=== PATIENT | female | born 1995 | race Caucasian/White ===

== ENCOUNTER → 2022-02-21 | Outpatient (REF) | payer OTHER | LOC: M LAB REF 16:36 | PROVIDERS: ATTEND Physician Assistant | DX: J03.90 Acute tonsillitis, unspecified (principal) ==

== ENCOUNTER → 2022-12-20 | Outpatient (CLI) | payer OTHER ==
[~2022-12-20] MED LIST: AMIT100TA PO; CLAR40CA PO; E-Z-GAS II EFFERVESCENT PACKET (SODIUM BICARB./CITRIC ACID/SIMETHICONE) As Ordered ONE; E-Z-HD 98% w/w 340GM SUSP BTL As Ordered ONE; E-Z-PAQUE 96% w/w SUSP 176GM BTL As Ordered ONE; HYDR-3363 PO; LUBI24CA PO; NITR-67 PO; ONDA-195 PO; PRUC2TAB PO; RIME75TA PO; TROK1CAP PO
== END ==
LOC: M RAD 08:13 → MERGE 08:30
PROVIDERS: ATTEND Registered Nurse
DX: K59.00 Constipation, unspecified (principal); K44.9 Diaphragmatic hernia without obstruction or gangrene

== ENCOUNTER → 2023-11-09 | Outpatient (REF) | payer OTHER ==
[~2023-11-09] MED LIST changes: -E-Z-GAS II EFFERVESCENT PACKET (SODIUM BICARB./CITRIC ACID/SIMETHICONE) As Ordered ONE; -E-Z-HD 98% w/w 340GM SUSP BTL As Ordered ONE; -E-Z-PAQUE 96% w/w SUSP 176GM BTL As Ordered ONE; -TROK1CAP PO; +[UNRECOGNIZED DRUG - CODE] PO
[2023-11-09 19:49] LABS: AMORPHOUS SEDIMENT SMALL (NEGATIVE); APPEARANCE, URINE CLOUDY (CLEAR); BACTERIA, URINE AUTO NEGATIVE (NEGATIVE); BILIRUBIN, URINE AUTO NEGATIVE (NEGATIVE); BLOOD, URINE BLOOD NEGATIVE (NEGATIVE); COLOR, URINE YELLOW (YELLOW); GLUCOSE, URINE (UA) AUTO NEGATIVE (NEGATIVE); KETONE, URINE AUTO NEGATIVE (NEGATIVE); LEUKOCYTE ESTERASE, URINE AUTO NEGATIVE (NEGATIVE); NITRITE, URINE AUTO NEGATIVE (NEGATIVE); PROTEIN, URINE AUTO NEGATIVE (NEGATIVE); RBC, URINE AUTO 0 /HPF (0-3); SPECIFIC GRAVITY URINE AUTO 1.011 (1.002-1.035); SQUAMOUS EPITHELIAL CELL UR AU 1 /HPF (0-6); UROBILINOGEN, URINE AUTO 0.2 mg/dL (0.0-2.0); WBC, URINE AUTO 0 /HPF (0-3)
[2023-11-09 20:42] LABS: Trichomonas vaginalis (AMP) NOT DETECTED (NEGATIVE)
[2023-11-09 21:06] LABS: GC DNA AMPLIFICATION NEGATIVE (NEGATIVE)
== END ==
LOC: M LAB REF 19:17
PROVIDERS: ATTEND Physician Assistant
DX: N39.0 Urinary tract infection, site not specified (principal); Z11.3 Encounter for screening for infections with a predominantly sexual mode of transmission

== ENCOUNTER 2023-11-13 21:43 | Emergency (ER) | payer OTHER | END 2023-11-13 22:02 | disposition left against medical advice (07) | LOC: M ED 21:43 | DX: Z53.21 Procedure and treatment not carried out due to patient leaving prior to being seen by health care provider (principal) ==

== ENCOUNTER → 2024-03-03 | Outpatient (REF) | payer OTHER ==
[2024-03-03 17:51] LABS: APPEARANCE, URINE HAZY (CLEAR); BACTERIA, URINE AUTO NEGATIVE (NEGATIVE); BILIRUBIN, URINE AUTO NEGATIVE (NEGATIVE); BLOOD, URINE BLOOD NEGATIVE (NEGATIVE); COLOR, URINE YELLOW (YELLOW); GLUCOSE, URINE (UA) AUTO NEGATIVE (NEGATIVE); KETONE, URINE AUTO NEGATIVE (NEGATIVE); LEUKOCYTE ESTERASE, URINE AUTO NEGATIVE (NEGATIVE); NITRITE, URINE AUTO NEGATIVE (NEGATIVE); PROTEIN, URINE AUTO NEGATIVE (NEGATIVE); RBC, URINE AUTO 0 /HPF (0-3); SPECIFIC GRAVITY URINE AUTO 1.012 (1.002-1.035); SQUAMOUS EPITHELIAL CELL UR AU 0 /HPF (0-6); UROBILINOGEN, URINE AUTO 0.2 mg/dL (0.0-2.0); WBC, URINE AUTO 0 /HPF (0-3)
== END ==
LOC: M SMT 17:10
PROVIDERS: ATTEND Nurse Practitioner Family
DX: N39.0 Urinary tract infection, site not specified (principal)

== ENCOUNTER 2024-08-26 06:09 | Day surgery (SDC) | payer OTHER ==
[~2024-08-26] VITALS: Ht 170.2 cm; Wt 63.0 kg
[~2024-08-26 06:09] MED LIST changes: +D 50CAP2 PO; +FREM225A SQ; +LORA-930 PO; +ZONI100C67 PO; +[UNRECOGNIZED DRUG - CODE] PO
[2024-08-26] MEDS ORDERED: BISA5TAB73 PO (06:59)
[2024-08-26 07:01] LABS: BASO # 0.0 10^3/uL (0.0-0.2); BASO % 0.4 % (0.0-1.0); EOS # 0.1 10^3/uL (0.0-0.5); EOS % 1.2 % (0.0-3.0); LYMPH # 2.0 10^3/uL (1.5-5.0); LYMPH % 34.5 % (24.0-44.0); MONO # 0.4 10^3/uL (0.0-0.8); MONO % 7.0 % (2.0-8.0); NEUTROPHILS # 3.2 10^3/uL (1.5-8.5); NEUTROPHILS % 56.7 % (36.0-66.0); PLATELET COUNT, AUTOMATED 221 10^3/uL (150-450)
[2024-08-26] MEDS ORDERED: LR 1,000 ML IV SCH (07:05)
[2024-08-26] MEDS: metroNIDAZOLE 500 MG in IV 1 EA IV ONE (07:15)
[2024-08-26] MEDS ORDERED: dexAMETHasone 4 MG/ML 1 ML VIAL As Ordered ONE (07:17)
[2024-08-26] MEDS ORDERED: ROCURONIUM BROMIDE 50MG/5ML VIAL As Ordered ONE (07:17)
[2024-08-26] MEDS ORDERED: ONDANSETRON 4MG 2ML VIAL As Ordered ONE (07:17)
[2024-08-26] MEDS ORDERED: LIDOCAINE 2% 100 MG/5 ML SDV (FOR ANES.) As Ordered ONE (07:17)
[2024-08-26] MEDS ORDERED: MIDAZOLAM INJ 2 MG/2 ML VIAL As Ordered ONE (07:18)
[2024-08-26] MEDS ORDERED: dexmedeTOMIDine (4 MCG/ML) 200 MCG/50 ML BTL As Ordered ONE (07:18)
[2024-08-26] MEDS: SCOPOLAMINE 1MG TRANSDERMAL PATCH TOP ONE (07:37)
[2024-08-26] MEDS: CLINDAMYCIN 900 MG/50 ML PREMIX BAG As Ordered ONE (07:45)
[2024-08-26] MEDS: CLINDAMYCIN 900 MG in IV 1 EA IV ONE (07:45)
[2024-08-26] MEDS: GENTAMICIN IV ONE (08:00)
[2024-08-26] MEDS: D5W IV ONE (08:00)
[2024-08-26] MEDS ORDERED: ACETAMINOPHEN 1000MG/100ML IV BAG As Ordered ONE (08:17)
[2024-08-26] MEDS ORDERED: SUGAMMADEX SODIUM 200 MG/2 ML VIAL As Ordered ONE (08:17)
[2024-08-26] MEDS ORDERED: HYDROmorphone HCL 2 MG/ML 1 ML VIAL As Ordered ONE (08:17)
[2024-08-26] MEDS ORDERED: KETOROLAC 30 MG/ML 1 ML VIAL As Ordered ONE (08:17)
[2024-08-26] MEDS ORDERED: MORPHINE 2 MG/ML 1 ML VIAL IV PRN (10:10)
[2024-08-26] MEDS: HYDROMORPHONE HCL 0.5 MG/0.5 ML SYRINGE IV PRN (10:50)
[2024-08-26] MEDS: ONDANSETRON 4MG 2ML VIAL IV PRN (10:50)
[2024-08-26] MEDS: LIDOCAINE 4% CREAM 5 GM (LMX4) TOP ONE (11:15)
[2024-08-26 14:05] VITALS: BP 118/70; TEMP 97.2; O2SAT 97
== END 2024-08-26 14:23 | disposition home or self-care (01) ==
LOC: M SDC 06:09
PROVIDERS: ATTEND Obstetrics & Gynecology
DX: N93.9 Abnormal uterine and vaginal bleeding, unspecified (principal); D25.2 Subserosal leiomyoma of uterus; N72 Inflammatory disease of cervix uteri; N83.8 Other noninflammatory disorders of ovary, fallopian tube and broad ligament; N92.0 Excessive and frequent menstruation with regular cycle; N87.9 Dysplasia of cervix uteri, unspecified; N94.6 Dysmenorrhea, unspecified; K58.1 Irritable bowel syndrome with constipation; G43.909 Migraine, unspecified, not intractable, without status migrainosus; Z79.899 Other long term (current) drug therapy; K21.9 Gastro-esophageal reflux disease without esophagitis; Z88.0 Allergy status to penicillin; Z87.440 Personal history of urinary (tract) infections
CPT/HCPCS: 36415; 58571; 81025; 85025; 86850; 86900; 86901; 88307; A6024; J0131; J0665; J0737; J1100; J1171; J1580; J1836; J1885; J2250; J2405; J2765; J3010

== ENCOUNTER 2024-11-02 07:24 | Emergency (ER) | payer OTHER ==
[~2024-11-02] VITALS: Ht 170.2 cm; Wt 55.5 kg
[~2024-11-02 07:24] MED LIST changes: +BISA5TAB73 PO
[2024-11-02 08:59] VITALS: TEMP 97.4
[2024-11-02] MEDS: NS (Normal Saline) 0.9% 1,000 ML IV ONE (10:05)
[2024-11-02 10:25] LABS: BASO # 0.0 10^3/uL (0.0-0.2); BASO % 0.4 % (0.0-1.0); EOS # 0.0 10^3/uL (0.0-0.5); EOS % 0.9 % (0.0-3.0); LYMPH # 1.7 10^3/uL (1.5-5.0); LYMPH % 38.6 % (24.0-44.0); MONO # 0.3 10^3/uL (0.0-0.8); MONO % 6.9 % (2.0-8.0); NEUTROPHILS # 2.4 10^3/uL (1.5-8.5); NEUTROPHILS % 53.0 % (36.0-66.0); PLATELET COUNT, AUTOMATED 196 10^3/uL (150-450)
[2024-11-02 10:54] LABS: ALT/SGPT 28.0 U/L (7.0-40); AST/SGOT 21.0 U/L (<34); CALCIUM LEVEL 8.6 MG/DL (8.5-10.1); CARBON DIOXIDE LEVEL 26.0 MMOL/L (20-31); CHLORIDE LEVEL 110.0 MMOL/L (98-107); CREATININE FOR GFR 0.94 MG/DL (0.55-1.30); GLOMERULAR FILTRATION RATE 83.2 (>60); POTASSIUM SERUM 3.9 MMOL/L (3.5-5.1); SODIUM LEVEL 139.0 MMOL/L (136-145)
[2024-11-02 12:04] VITALS: BP 118/79; O2SAT 100
[2024-11-02] MEDS ORDERED: SOD175SO PO (12:23)
== END 2024-11-02 12:41 | disposition home or self-care (01) ==
LOC: M ED 07:24
DX: K59.00 Constipation, unspecified (principal); Z88.0 Allergy status to penicillin; Z79.899 Other long term (current) drug therapy